=== PATIENT | female | born 1940 | race Caucasian/White ===

== ENCOUNTER 2017-11-15 10:41 | Inpatient (IN) | payer OTHER, MEDICAID ==
[~2017-11-15] VITALS: Ht 139.7 cm; Wt 32.2 kg
[2017-11-15 10:45] VITALS: BP 104/70
[2017-11-15] MEDS ORDERED: NACL 0.9% 500 ML IV SCH (11:02)
[2017-11-15] MEDS ORDERED: NACL 0.9% 1,000 ML IV SCH (11:02)
[2017-11-15] MEDS ORDERED: metroNIDAZOLE 500 MG/NS PREMIX 100 ML IV ONE (11:05)
[2017-11-15] MEDS ORDERED: ACET-2619 PO (11:51)
[2017-11-15 11:54] LABS: BASOPHILS # (AUTO) 0.1 K/uL (0.00-0.22); BASOPHILS % (AUTO) 1.2 % (0.0-2.0); EOSINOPHILS % (AUTO) 0.8 % (0.0-4.0); HEMATOCRIT 31.8 % (36-48); HEMOGLOBIN 10.4 g/dL (12.0-16.0); LYMPHOCYTES # (AUTO) 1.2 K/uL (2.5-16.5); LYMPHOCYTES % (AUTO) 18.1 % (20.5-51.1); MEAN CORPUSCULAR HEMOGLOBIN 31 pg (27-31); MEAN CORPUSCULAR HGB CONC 33 g/dL (33-37); MEAN CORPUSCULAR VOLUME 94.5 fL (80-94); MONOCYTES # (AUTO) 0.5 K/uL (0.8-1.0); NEUTROPHILS # (AUTO) 4.6 K/uL (1.8-7.7); NEUTROPHILS % (AUTO) 71.9 % (42.2-75.2); PLATELET COUNT (AUTO) 260 K/uL (140-450); RED BLOOD CELL COUNT(AUTO) 3.36 MIL/uL (4.20-5.40); RED CELL DISTRIBUTION WIDTH 13.9 % (11.6-13.7); WHITE BLOOD COUNT (AUTO) 6.4 K/uL (4.8-10.8)
[2017-11-15] MEDS ORDERED: ELA25 PO (11:54)
[2017-11-15] MEDS ORDERED: ATOR20TA PO (11:55)
[2017-11-15] MEDS ORDERED: FERR-15 PO (11:58)
[2017-11-15] MEDS ORDERED: GABA300C PO (11:59)
[2017-11-15] MEDS ORDERED: ESCI10TA PO (12:01)
[2017-11-15] MEDS ORDERED: LID5T TP (12:02)
[2017-11-15] MEDS ORDERED: LORA2SOL69 PO (12:04)
[2017-11-15] MEDS ORDERED: MSCON15 PO (12:05)
[2017-11-15] MEDS ORDERED: NAPR-54 PO (12:06)
[2017-11-15] MEDS ORDERED: HYDR200T5 PO (12:07)
[2017-11-15] MEDS ORDERED: PANT40EC PO (12:07)
[2017-11-15] MEDS ORDERED: MIRABULK PO (12:08)
[2017-11-15 12:09] LABS: PROTHROMBIN TIME 9.8 secs (10.8-13.4)
[2017-11-15] MEDS ORDERED: CYCL0.052 OP (12:10)
[2017-11-15 12:12] LABS: CARBON DIOXIDE 25.6 mmol/L (21-32); CHLORIDE 97 mmol/L (98-107); CREATININE 0.8 mg/dL (0.6-1.3); GLUCOSE 101 mg/dL (74-106); POTASSIUM 3.6 mmol/L (3.5-5.1); SODIUM SERUM 135 mmol/L (136-145); UREA NITROGEN, BLOOD 17 mg/dL (7-18)
[2017-11-15] MEDS ORDERED: DOCU1TAB73 PO ×2 (12:12→12:14)
[2017-11-15 12:14] LABS: ACETONE, SERUM NEGATIVE (NEGATIVE)
[2017-11-15] MEDS ORDERED: TAMS0.4C96 PO (12:14)
[2017-11-15] MEDS ORDERED: ALBU0.0912 IH (12:15)
[2017-11-15 12:19] LABS: ALBUMIN 3.8 g/dL (3.4-5.0); AMYLASE 70 U/L (25-115); ASPARTATE AMINOTRANSFERASE 22 U/L (15-37); LIPASE 298 U/L (73-393); MAGNESIUM 1.6 mg/dL (1.8-2.4); TOTAL BILIRUBIN 0.4 mg/dL (0.0-1.0)
[2017-11-15] MEDS ORDERED: HYDROcodone/APAP 7.5/325 MG 1 TAB PO PRN (12:55)
[2017-11-15] MEDS ORDERED: DOCUSATE SODIUM 100 MG GELCAP PO PRN (12:55)
[2017-11-15] MEDS ORDERED: ACETAMINOPHEN 325 MG TAB PO PRN ×2 (12:55→14:10)
[2017-11-15] MEDS: NACL 0.9% 1,000 ML IV SCH (13:46)
[2017-11-15 14:17] VITALS: BP 138/69
[2017-11-15] MEDS ORDERED: MELA1TAB33 PO (14:38)
[2017-11-15] MEDS ORDERED: MAGNESIUM OXIDE 400 MG TAB PO SCH (15:00)
[2017-11-15 15:07] LABS: FREE T4 (FREE THYROXINE) 0.83 ng/dL (0.76-1.46); PHOSPHORUS 2.8 mg/dL (2.5-4.9); THYROID STIMULATING HORMONE 2.15 uIU/mL (0.34-3.74)
[2017-11-15 16:00] VITALS: BP 149/79
[2017-11-15] MEDS ORDERED: Z-GUARD PASTE TP PRN (17:45)
[2017-11-15] MEDS: GABAPENTIN 300 MG CAP PO SCH (17:47)
[2017-11-15 20:00] VITALS: BP 143/74
[2017-11-15] MEDS: AMITRIPTYLINE 25 MG TAB PO SCH (21:05)
[2017-11-15] MEDS: ATORVASTATIN 20 MG TAB PO SCH (21:06)
[2017-11-15] MEDS: MORPHINE TAB ER 15 MG TABER PO SCH (21:06)
[2017-11-15] MEDS ORDERED: ZOLPIDEM 5 MG TAB PO SCH (22:00)
[2017-11-16] MEDS: MORPHINE SULFATE 2 MG/ML SYR IVP PRN (00:50)
[2017-11-16 02:30] LABS: BARBITURATE, URINE NEG. ng/ml (NEG <=200); BENZODIAZEPINE, URINE NEG. ng/mL (NEG <=200); CANNABINOID, URINE NEG. ng/mL (NEG <=50); COCAINE, URINE NEG. ng/mL (NEG <=300); OPIATE, URINE NEG. ng/mL (NEG <=2000); PHENCYCLIDINE SCREEN,URINE NEG. ng/mL (NEG <=25)
[2017-11-16] MEDS: NACL 0.9% 1,000 ML IV SCH ×3 (04:34→23:45)
[2017-11-16] MEDS ORDERED: cefTRIAXone 1,000 MG VIAL ONE (06:31)
[2017-11-16 07:31] LABS: BASOPHILS # (AUTO) 0.1 K/uL (0.00-0.22); BASOPHILS % (AUTO) 1.8 % (0.0-2.0); EOSINOPHILS # (AUTO) 0.2 K/uL (0-0.4); EOSINOPHILS % (AUTO) 4.4 % (0.0-4.0); HEMATOCRIT 29.1 % (36-48); HEMOGLOBIN 9.6 g/dL (12.0-16.0); LYMPHOCYTES # (AUTO) 1.5 K/uL (2.5-16.5); LYMPHOCYTES % (AUTO) 26.2 % (20.5-51.1); MEAN CORPUSCULAR HEMOGLOBIN 31 pg (27-31); MEAN CORPUSCULAR HGB CONC 33 g/dL (33-37); MEAN CORPUSCULAR VOLUME 94.2 fL (80-94); MONOCYTES # (AUTO) 0.7 K/uL (0.8-1.0); MONOCYTES % (AUTO) 11.6 % (1.7-9.3); NEUTROPHILS # (AUTO) 3.2 K/uL (1.8-7.7); PLATELET COUNT (AUTO) 247 K/uL (140-450); RED BLOOD CELL COUNT(AUTO) 3.09 MIL/uL (4.20-5.40); RED CELL DISTRIBUTION WIDTH 13.6 % (11.6-13.7); WHITE BLOOD COUNT (AUTO) 5.7 K/uL (4.8-10.8)
[2017-11-16 08:00] VITALS: BP 126/67
[2017-11-16 08:47] LABS: ANION GAP 14.2 (8-16); CARBON DIOXIDE 22.2 mmol/L (21-32); CHLORIDE 103 mmol/L (98-107); CREATININE 0.7 mg/dL (0.6-1.3); GLUCOSE 83 mg/dL (74-106); POTASSIUM 3.4 mmol/L (3.5-5.1); SODIUM SERUM 136 mmol/L (136-145); UREA NITROGEN, BLOOD 12 mg/dL (7-18)
[2017-11-16 08:49] LABS: MAGNESIUM 1.4 mg/dL (1.8-2.4)
[2017-11-16] MEDS: GABAPENTIN 300 MG CAP PO SCH ×3 (08:57→18:15)
[2017-11-16] MEDS: ESCITALOPRAM 20 MG TAB PO SCH (08:58)
[2017-11-16 08:59] LABS: PHOSPHORUS 2.5 mg/dL (2.5-4.9)
[2017-11-16] MEDS: FERROUS SULFATE 325 MG TABEC PO SCH (08:59)
[2017-11-16] MEDS: MORPHINE TAB ER 15 MG TABER PO SCH ×2 (08:59→20:57)
[2017-11-16] MEDS: HYDROXYCHLOROQUINE 200 MG TAB PO SCH (08:59)
[2017-11-16] MEDS: TAMSULOSIN 0.4 MG CAP PO SCH (08:59)
[2017-11-16] MEDS ORDERED: MAG SULF 2000 MG/WATER PREMIX 50 ML IV ONE (09:10)
[2017-11-16 10:13] LABS: T4 (THYROXINE) 6.2 ug/dL (4.5-12.0)
[2017-11-16] MEDS: MAGNESIUM SULFATE 1GM in DEXTROSE 5% 100 ML PREMIX IV SCH ×2 (10:21→11:24)
[2017-11-16] MEDS: metroNIDAZOLE 500 MG/NS PREMIX 100 ML IV SCH ×2 (12:26→20:59)
[2017-11-16] MEDS ORDERED: KCL 20 MEQ/WATER INJ PREMIX 100 ML IV SCH (13:00)
[2017-11-16] MEDS: CHLORHEXADINE GLUC 2% CLOTH TP SCH (14:05)
[2017-11-16] MEDS: MUPIROCIN CA NASAL 2% 1GM TUBE NS SCH (14:05)
[2017-11-16] MEDS ORDERED: BOWEL EVACUANT DRINK 4,000 ML PDS PO SCH (14:43)
[2017-11-16 16:00] VITALS: BP 120/65
[2017-11-16] MEDS: ATORVASTATIN 20 MG TAB PO SCH (20:57)
[2017-11-16] MEDS: AMITRIPTYLINE 25 MG TAB PO SCH (20:58)
[2017-11-16 23:53] VITALS: BP 120/71
[2017-11-17] MEDS: metroNIDAZOLE 500 MG/NS PREMIX 100 ML IV SCH (04:59)
[2017-11-17 07:02] LABS: BASOPHILS # (AUTO) 0.1 K/uL (0.00-0.22); BASOPHILS % (AUTO) 1.8 % (0.0-2.0); EOSINOPHILS # (AUTO) 0.3 K/uL (0-0.4); EOSINOPHILS % (AUTO) 6.4 % (0.0-4.0); HEMATOCRIT 27.8 % (36-48); HEMOGLOBIN 9.3 g/dL (12.0-16.0); LYMPHOCYTES # (AUTO) 1.2 K/uL (2.5-16.5); MEAN CORPUSCULAR HEMOGLOBIN 31 pg (27-31); MEAN CORPUSCULAR HGB CONC 34 g/dL (33-37); MEAN CORPUSCULAR VOLUME 93.8 fL (80-94); MONOCYTES # (AUTO) 0.6 K/uL (0.8-1.0); MONOCYTES % (AUTO) 12.8 % (1.7-9.3); NEUTROPHILS # (AUTO) 2.7 K/uL (1.8-7.7); PLATELET COUNT (AUTO) 229 K/uL (140-450); RED BLOOD CELL COUNT(AUTO) 2.96 MIL/uL (4.20-5.40); RED CELL DISTRIBUTION WIDTH 13.4 % (11.6-13.7); WHITE BLOOD COUNT (AUTO) 4.9 K/uL (4.8-10.8)
[2017-11-17 07:19] LABS: ANION GAP 12.8 (8-16); CHLORIDE 107 mmol/L (98-107); CREATININE 0.6 mg/dL (0.6-1.3); GLUCOSE 94 mg/dL (74-106); POTASSIUM 3.8 mmol/L (3.5-5.1); SODIUM SERUM 140 mmol/L (136-145); UREA NITROGEN, BLOOD 13 mg/dL (7-18)
[2017-11-17 08:00] VITALS: BP 141/75
[2017-11-17 09:20] LABS: TRANSFERRIN 267 mg/dL (200-370)
[2017-11-17] MEDS: MORPHINE TAB ER 15 MG TABER PO SCH ×2 (09:41→21:01)
[2017-11-17] MEDS: ESCITALOPRAM 20 MG TAB PO SCH (09:43)
[2017-11-17] MEDS: FERROUS SULFATE 325 MG TABEC PO SCH (09:44)
[2017-11-17] MEDS: GABAPENTIN 300 MG CAP PO SCH ×4 (09:44→16:54)
[2017-11-17] MEDS: HYDROXYCHLOROQUINE 200 MG TAB PO SCH (09:45)
[2017-11-17] MEDS: TAMSULOSIN 0.4 MG CAP PO SCH (09:45)
[2017-11-17] MEDS ORDERED: MAG SULF 2000 MG/WATER PREMIX 50 ML IV SCH (11:57)
[2017-11-17 12:38] LABS: FOLIC ACID > 20.00 ng/mL (>3.0)
[2017-11-17 16:00] VITALS: BP 109/65
[2017-11-17] MEDS: CHLORHEXADINE GLUC 2% CLOTH TP SCH (16:54)
[2017-11-17] MEDS: MUPIROCIN CA NASAL 2% 1GM TUBE NS SCH (16:55)
[2017-11-17] MEDS ORDERED: BOWEL EVACUANT DRINK 4,000 ML PDS PO SCH (17:30)
[2017-11-17] MEDS: AMITRIPTYLINE 25 MG TAB PO SCH (21:01)
[2017-11-17] MEDS: ATORVASTATIN 20 MG TAB PO SCH (21:02)
[2017-11-17] MEDS: NACL 0.9% 1,000 ML IV SCH (21:04)
[2017-11-18] VITALS: BP 98/70
[2017-11-18] MEDS: MORPHINE SULFATE 2 MG/ML SYR IVP PRN ×2 (03:33→10:50)
[2017-11-18 07:48] LABS: CARBON DIOXIDE 26.7 mmol/L (21-32); CHLORIDE 105 mmol/L (98-107); CREATININE 0.6 mg/dL (0.6-1.3); GLUCOSE 81 mg/dL (74-106); POTASSIUM 3.7 mmol/L (3.5-5.1); SODIUM SERUM 138 mmol/L (136-145); UREA NITROGEN, BLOOD 15 mg/dL (7-18)
[2017-11-18 07:54] LABS: MAGNESIUM 1.7 mg/dL (1.8-2.4); PHOSPHORUS 2.8 mg/dL (2.5-4.9)
[2017-11-18 07:57] LABS: BASOPHILS # (AUTO) 0.1 K/uL (0.00-0.22); BASOPHILS % (AUTO) 1.5 % (0.0-2.0); EOSINOPHILS # (AUTO) 0.4 K/uL (0-0.4); EOSINOPHILS % (AUTO) 6.5 % (0.0-4.0); HEMATOCRIT 28.2 % (36-48); HEMOGLOBIN 9.5 g/dL (12.0-16.0); LYMPHOCYTES # (AUTO) 1.2 K/uL (2.5-16.5); LYMPHOCYTES % (AUTO) 22.1 % (20.5-51.1); MEAN CORPUSCULAR HEMOGLOBIN 32 pg (27-31); MEAN CORPUSCULAR HGB CONC 34 g/dL (33-37); MEAN CORPUSCULAR VOLUME 93.8 fL (80-94); MONOCYTES # (AUTO) 0.7 K/uL (0.8-1.0); MONOCYTES % (AUTO) 11.8 % (1.7-9.3); NEUTROPHILS # (AUTO) 3.3 K/uL (1.8-7.7); NEUTROPHILS % (AUTO) 58.1 % (42.2-75.2); PLATELET COUNT (AUTO) 232 K/uL (140-450); RED CELL DISTRIBUTION WIDTH 13.7 % (11.6-13.7); WHITE BLOOD COUNT (AUTO) 5.6 K/uL (4.8-10.8)
[2017-11-18 08:00] VITALS: BP 130/68
[2017-11-18] MEDS: HYDROXYCHLOROQUINE 200 MG TAB PO SCH (09:00)
[2017-11-18] MEDS: TAMSULOSIN 0.4 MG CAP PO SCH (09:00)
[2017-11-18] MEDS: ESCITALOPRAM 20 MG TAB PO SCH (09:01)
[2017-11-18] MEDS: FERROUS SULFATE 325 MG TABEC PO SCH (09:01)
[2017-11-18] MEDS: MORPHINE TAB ER 15 MG TABER PO SCH ×2 (09:01→20:53)
[2017-11-18] MEDS: GABAPENTIN 300 MG CAP PO SCH ×3 (09:01→17:04)
[2017-11-18] MEDS: [UNRECOGNIZED DRUG - OTHER] OP SCH ×3 (09:02→17:04)
[2017-11-18] MEDS ORDERED: IMO2 PO (11:19)
[2017-11-18] MEDS ORDERED: MAGNESIUM OXIDE 400 MG TAB PO SCH (12:00)
[2017-11-18] MEDS: CHLORHEXADINE GLUC 2% CLOTH TP SCH (12:02)
[2017-11-18] MEDS: MUPIROCIN CA NASAL 2% 1GM TUBE NS SCH (12:08)
[2017-11-18] MEDS ORDERED: fentaNYL 0.05 MG/ML VIAL ONE (12:36)
[2017-11-18] MEDS ORDERED: MIDAZOLAM 2 MG/2 ML VIAL ONE (12:36)
[2017-11-18] MEDS ORDERED: MIDAZOLAM 2 MG/2 ML VIAL IVP ONE (13:45)
[2017-11-18] MEDS ORDERED: fentaNYL 0.05 MG/ML VIAL IVP ONE (13:45)
[2017-11-18 16:00] VITALS: BP 110/70
[2017-11-18 20:47] VITALS: BP 115/70
[2017-11-18] MEDS: ATORVASTATIN 20 MG TAB PO SCH (20:52)
[2017-11-18] MEDS: AMITRIPTYLINE 25 MG TAB PO SCH (20:52)
[2017-11-19 07:32] LABS: BASOPHILS # (AUTO) 0.1 K/uL (0.00-0.22); BASOPHILS % (AUTO) 1.3 % (0.0-2.0); EOSINOPHILS # (AUTO) 0.4 K/uL (0-0.4); HEMATOCRIT 28.5 % (36-48); HEMOGLOBIN 9.3 g/dL (12.0-16.0); LYMPHOCYTES # (AUTO) 1.2 K/uL (2.5-16.5); LYMPHOCYTES % (AUTO) 20.5 % (20.5-51.1); MEAN CORPUSCULAR HEMOGLOBIN 31 pg (27-31); MEAN CORPUSCULAR HGB CONC 33 g/dL (33-37); MEAN CORPUSCULAR VOLUME 95.4 fL (80-94); MONOCYTES # (AUTO) 0.7 K/uL (0.8-1.0); MONOCYTES % (AUTO) 11.5 % (1.7-9.3); NEUTROPHILS # (AUTO) 3.7 K/uL (1.8-7.7); NEUTROPHILS % (AUTO) 60.7 % (42.2-75.2); PLATELET COUNT (AUTO) 210 K/uL (140-450); RED BLOOD CELL COUNT(AUTO) 2.99 MIL/uL (4.20-5.40)
[2017-11-19 07:54] LABS: CARBON DIOXIDE 26.6 mmol/L (21-32); CHLORIDE 105 mmol/L (98-107); CREATININE 0.7 mg/dL (0.6-1.3); GLUCOSE 107 mg/dL (74-106); POTASSIUM 4.6 mmol/L (3.5-5.1); SODIUM SERUM 138 mmol/L (136-145); UREA NITROGEN, BLOOD 25 mg/dL (7-18)
[2017-11-19 08:00] VITALS: BP 138/77
[2017-11-19] MEDS: [UNRECOGNIZED DRUG - OTHER] OP SCH ×3 (09:49→16:50)
[2017-11-19] MEDS: ESCITALOPRAM 20 MG TAB PO SCH (09:50)
[2017-11-19] MEDS: MORPHINE TAB ER 15 MG TABER PO SCH ×2 (09:50→21:12)
[2017-11-19] MEDS: GABAPENTIN 300 MG CAP PO SCH ×3 (09:50→16:50)
[2017-11-19] MEDS: FERROUS SULFATE 325 MG TABEC PO SCH (09:50)
[2017-11-19] MEDS: TAMSULOSIN 0.4 MG CAP PO SCH (09:51)
[2017-11-19] MEDS: HYDROXYCHLOROQUINE 200 MG TAB PO SCH (09:54)
[2017-11-19] MEDS ORDERED: MORPHINE SULFATE 2 MG/ML SYR IVP SCH (11:12)
[2017-11-19] MEDS: ALUMINUM HYD/MAG/SIMETHICONE 30 ML UDC PO SCH ×3 (12:49→23:44)
[2017-11-19] MEDS: DIPHENOXYLATE /ATROPINE 2.5 MG TAB PO SCH ×3 (12:50→23:44)
[2017-11-19] MEDS: CHLORHEXADINE GLUC 2% CLOTH TP SCH (12:50)
[2017-11-19] MEDS: MUPIROCIN CA NASAL 2% 1GM TUBE NS SCH (12:51)
[2017-11-19] MEDS ORDERED: FAMOTIDINE 20 MG TAB PO SCH (13:00)
[2017-11-19] MEDS: NACL 0.9% 1,000 ML IV SCH ×2 (13:42→16:49)
[2017-11-19 16:00] VITALS: BP 140/70
[2017-11-19] MEDS ORDERED: MAG SULF 2000 MG/WATER PREMIX 100 ML IV ONE (16:00)
[2017-11-19] MEDS ORDERED: LACTOBACILLUS RHAMNOSUS GG 1 EACH CAP PO SCH (16:30)
[2017-11-19] MEDS ORDERED: MAGNESIUM SULFATE 4GM in STERILE WATER 100 ML PREMIX IV SCH (17:00)
[2017-11-19] MEDS ORDERED: traZODone 50 MG TAB PO SCH (21:00)
[2017-11-19] MEDS: ATORVASTATIN 20 MG TAB PO SCH (21:11)
[2017-11-19] MEDS: AMITRIPTYLINE 25 MG TAB PO SCH (21:12)
[2017-11-19] MEDS: MORPHINE SULFATE 2 MG/ML SYR IVP PRN (22:37)
[2017-11-20 00:31] VITALS: BP 118/69
[2017-11-20] MEDS: MORPHINE SULFATE 2 MG/ML SYR IVP PRN (05:30)
[2017-11-20] MEDS: DIPHENOXYLATE /ATROPINE 2.5 MG TAB PO SCH ×2 (05:30→12:54)
[2017-11-20] MEDS: ALUMINUM HYD/MAG/SIMETHICONE 30 ML UDC PO SCH ×2 (05:30→12:54)
[2017-11-20 07:25] LABS: BASOPHILS # (AUTO) 0.1 K/uL (0.00-0.22); BASOPHILS % (AUTO) 1.2 % (0.0-2.0); EOSINOPHILS # (AUTO) 0.4 K/uL (0-0.4); EOSINOPHILS % (AUTO) 7.1 % (0.0-4.0); HEMATOCRIT 28.1 % (36-48); HEMOGLOBIN 9.4 g/dL (12.0-16.0); LYMPHOCYTES # (AUTO) 1.4 K/uL (2.5-16.5); LYMPHOCYTES % (AUTO) 28.9 % (20.5-51.1); MEAN CORPUSCULAR HEMOGLOBIN 31 pg (27-31); MEAN CORPUSCULAR HGB CONC 33 g/dL (33-37); MEAN CORPUSCULAR VOLUME 93.5 fL (80-94); MONOCYTES # (AUTO) 0.6 K/uL (0.8-1.0); MONOCYTES % (AUTO) 12.4 % (1.7-9.3); NEUTROPHILS # (AUTO) 2.5 K/uL (1.8-7.7); NEUTROPHILS % (AUTO) 50.4 % (42.2-75.2); PLATELET COUNT (AUTO) 210 K/uL (140-450); RED BLOOD CELL COUNT(AUTO) 3.01 MIL/uL (4.20-5.40); RED CELL DISTRIBUTION WIDTH 14.1 % (11.6-13.7)
[2017-11-20 07:34] LABS: ANION GAP 10.1 (8-16); CARBON DIOXIDE 27.9 mmol/L (21-32); CHLORIDE 100 mmol/L (98-107); CREATININE 0.8 mg/dL (0.6-1.3); GLUCOSE 86 mg/dL (74-106); SODIUM SERUM 134 mmol/L (136-145); UREA NITROGEN, BLOOD 25 mg/dL (7-18)
[2017-11-20 07:56] VITALS: BP 113/62
[2017-11-20] MEDS ORDERED: MAG SULF 2000 MG/WATER PREMIX 100 ML IV SCH (08:00)
[2017-11-20] MEDS ORDERED: LACTOBACILLUS RHAMNOSUS GG 1 EACH CAP PO SCH (09:00)
[2017-11-20] MEDS ORDERED: FAMOTIDINE 20 MG TAB PO SCH (09:00)
[2017-11-20] MEDS: TAMSULOSIN 0.4 MG CAP PO SCH (09:24)
[2017-11-20] MEDS: [UNRECOGNIZED DRUG - OTHER] OP SCH ×2 (09:24→12:55)
[2017-11-20] MEDS: GABAPENTIN 300 MG CAP PO SCH ×2 (09:24→12:54)
[2017-11-20] MEDS: FERROUS SULFATE 325 MG TABEC PO SCH (09:25)
[2017-11-20] MEDS: HYDROXYCHLOROQUINE 200 MG TAB PO SCH (09:25)
[2017-11-20] MEDS: ESCITALOPRAM 20 MG TAB PO SCH (09:26)
[2017-11-20] MEDS: MORPHINE TAB ER 15 MG TABER PO SCH (09:26)
[2017-11-20] MEDS ORDERED: FAMO20TA13 PO (11:45)
[2017-11-20] MEDS ORDERED: ATRO1TAB60 PO (11:45)
[2017-11-20] MEDS ORDERED: MAA30 PO (11:45)
[2017-11-20] MEDS: CHLORHEXADINE GLUC 2% CLOTH TP SCH (12:00)
[2017-11-20] MEDS: MUPIROCIN CA NASAL 2% 1GM TUBE NS SCH (12:53)
== END 2017-11-20 11:51 | DRG 392 ==
LOC: MED 10:41 → MTU 12:51
PROVIDERS: ADMIT General Practice; ATTEND General Practice
PROC: 0DJD8ZZ Inspection of Lower Intestinal Tract, Via Natural or Artificial Opening Endoscopic (ICD-10-PCS; principal; 2017-11-18 12:30)
DX: K90.0 Celiac disease (principal); E87.1 Hypo-osmolality and hyponatremia; J98.11 Atelectasis; N13.30 Unspecified hydronephrosis; F32.9 Major depressive disorder, single episode, unspecified; N32.81 Overactive bladder; M54.9 Dorsalgia, unspecified; E87.6 Hypokalemia; E78.5 Hyperlipidemia, unspecified; K52.9 Noninfective gastroenteritis and colitis, unspecified; G89.4 Chronic pain syndrome; K64.9 Unspecified hemorrhoids; M35.00 Sjogren syndrome, unspecified; N83.201 Unspecified ovarian cyst, right side; I10 Essential (primary) hypertension; E86.0 Dehydration; R62.7 Adult failure to thrive; K90.9 Intestinal malabsorption, unspecified; Z96.642 Presence of left artificial hip joint; E83.42 Hypomagnesemia; R91.1 Solitary pulmonary nodule; D63.8 Anemia in other chronic diseases classified elsewhere; Z22.322 Carrier or suspected carrier of Methicillin resistant Staphylococcus aureus; Z79.899 Other long term (current) drug therapy; Z87.440 Personal history of urinary (tract) infections
CPT/HCPCS: 36415; 71045; 71260; 76830; 80048; 80053; 80305; 82009; 82150; 82607; 82746; 83036; 83540; 83605; 83690; 83735; 83880; 84100; 84436; 84439; 84443; 84479; 84484; 84550; 85025; 85045; 85610; 85730; 87040; 87045; 87070; 87081; 89055; 93005; 96365; 97110; 97116; 97530; 99285; C1758; J0696; J2250; J2270; J3010; J3475; J3480; J3490; J7030; J7060; Q0092; Q9967